=== PATIENT | male | born 1995 | race Caucasian/White ===

== ENCOUNTER 2024-03-27 20:45 | Emergency (ER) | payer OTHER ==
[2024-03-27 21:08] VITALS: BP 156/97; O2SAT 99
--- NOTE | 2024-03-27 21:13 | ED Physician Documentation ---
PD HPI ABD PAIN - Stated complaint Stated Complaint: RT SIDE PX - Chief complaint Chief Complaint: Abd Pain - Additional information Additional information: 29-year-old male with history of diverticulitis presents emergency department for right flank pain. Patient says that it was sudden onset right flank/abdominal pain that happened about 2 hours ago with aggressive nausea vomiting. Patient says that he has history of diverticulitis and this pain does feel somewhat similar but patient says that he is concerned that it could be due to a kidney stone as he has what he describes as hematuria. He feels the pain radiating and slowly moving down to his right abdominal/groin region. No recent illnesses no fevers or chills. PD PAST MEDICAL HISTORY - Present Medications Home Medications: Ambulatory Orders Medication Instructions Recorded Confirmed HYDROcod/ACETAM 5/325 [Homer 5/325] 1 tab PO Q6H PRN #8 tab 03/27/24 Ondansetron Odt [Zofran Odt] 4 mg TL Q6H PRN #10 tablet 03/27/24 Tamsulosin [Flomax] 0.4 mg PO DAILY #15 cap 03/27/24 - Allergies Allergies/Adverse Reactions: Allergies Allergy/AdvReac Type Severity Reaction Status Date / Time No Known Drug Allergies Allergy Verified 03/27/24 20:59 PD ED PE NORMAL - Vitals Vital signs reviewed: Yes - General General: Alert and oriented X 3, No acute distress, Other (obese) - HEENT HEENT: Atraumatic, PERRL - Cardiac Cardiac: RRR - Respiratory Respiratory: No respiratory distress - Abdomen Abdomen: Normal bowel sounds, Soft, Non distended, No organomegaly, Other (Right lower quadrant tenderness) - Back Back: Other (right CVA tenderness) - Psych Psych: Normal mood Results - Vitals Vitals: Vital Signs - 24 hr 03/27/24 03/27/24 20:54 21:14 Temperature 36.0 C L Heart Rate 66 72 Respiratory 16 Rate Blood Pressure 156/97 H O2 Saturation 99 Oxygen O2 Source Room air - Labs Labs: Laboratory Tests 03/27/24 03/27/24 21:10 21:10 WBC 10.3 RBC 5.38 Hgb 16.0 Hct 45.3 MCV 84.2 MCH 29.7 MCHC 35.3 RDW 12.2 Plt Count 314 MPV 9.5 Neut # (Auto) 6.8 H Lymph # (Auto) 2.6 [place] # (Auto) 0.7 Eos # (Auto) 0.2 Baso # (Auto) 0.0 Absolute Nucleated RBC 0.00 Nucleated RBC % 0.0 Sodium 137 Potassium 3.4 L Chloride 101 Carbon Dioxide 27 Anion Gap 9.0 BUN 15 Creatinine 0.9 Estimated GFR (MDRD) 100 Glucose 131 H Calcium 10.4 H Total Bilirubin 0.4 AST 21 ALT 40 Alkaline Phosphatase 75 Total Protein 7.6 Albumin 4.9 Globulin 2.7 Albumin/Globulin Ratio 1.8 Lipase 30 - Rads (name of study) CT KUB Relevant Findings:: Final report received, EMP independent interpretation of te st (Mild right hydronephrosis and proximal hydroureter secondary to 3 mm proximal ureter stone) PD Medical Decision Making - ED course ED course: 29-year-old male presents emergency department for right flank pain. Labs are complete for further evaluation and do not reveal any leukocytosis or anemia no electrolyte abnormalities. Calcium is very minimally elevated at 10.4 most likely due to dehydration as patient has had a couple episodes of nausea vomiting. CT KUB was complete which revealed a very small 3 mm right renal johnson culi. Patient was given Flomax in the emergency department as well as Toradol and Zofran and does report significant improvement in pain. He is also given a take-home pack of narcotics as well as Zofran to help with pain over the evening. I am prescribing a short course of short-acting opioid pain medication for this patient. 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 I have discussed that the opioids are for short term therapy only, and will not be refilled from the ED. Strict ER return precautions given patient told to follow-up with primary care provider outpatient for further evaluation and was told when to report back to the emergency department as needed. Flomax sent to patient's preferred pharmacy as well as some nausea and pain meds. Departure - Departure Disposition: 01 Home, Self Care Clinical Impression: Right renal stone Instructions: Kidney Stones, Kidney Stones Prevent Prescriptions: Tamsulosin [Flomax] 0.4 mg PO DAILY #15 cap HYDROcod/ACETAM 5/325 [Homer 5/325] 1 tab PO Q6H PRN #8 tab PRN Reason: Pain >8 Ondansetron Odt [Zofran Odt] 4 mg TL Q6H PRN #10 tablet PRN Reason: Nausea / Vomiting Comments: Thank you for trusting us with your care. We have found that you have a very small right renal calculi about 3 mm. You should eventually pass this on your own. Drink plenty of fluids avoid dehydrating things such as tea, coffee, energy drinks. 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 to help with symptoms. I am prescribing a short course of narcotic pain medication for you. These are potentially dangerous and addictive medications that should be used carefully. These medications may constipate you. Take an vgjm-vxv-itxztir stool softener (docusate) twice daily with plenty of water while taking these medications. If you go 24 hours without a bowel movement, take gcoi-faf-gvhvjjv miralax, per package instructions. Do not drink or drive while taking these medications. If you received narcotic or sedating medications while in the emergency department, do not drive for 24 hours. Store this medication in a safe, secure place and out of reach of children. It is a violation of federal law to give or sell this medication to another person or to use in a manner other than prescribed. The ED will not refill narcotic prescriptions, including prescriptions lost or stolen. To dispose of unwanted medications: 1. [facility] at [address] in [place] has a medication drop box. They accept prescription medications (in pill form) Tuesday through Tuesday 9:00 a.m. to 5:00 p.m. 2. The [facility] [employer] accepts prescription medications (in pill form only) for disposal year round. Call for more information. 3. Contact the [facility] for the next [facility] sponsored prescription drug collection event. , [phone], or [phone]; Note that many narcotic pain relievers also contain Tylenol/acetaminophen. Please ensure that your total dose of acetaminophen from all sources does not exceed 3 g (3000 mg) per day. Forms: PCP List Discharge Date/Time: 03/27/24 22:26
[2024-03-27 21:16] LABS: BASOPHILS % (AUTO) 0.4 %; EOSINOPHILS # (AUTO) 0.2 10^3/uL (0.0-0.7); EOSINOPHILS % (AUTO) 1.9 %; HCT - HEMATOCRIT 45.3 % (42.0-52.0); LYMPHOCYTES # (AUTO) 2.6 10^3/uL (1.5-3.5); MEAN CORPUSCULAR HEMOGLOBIN 29.7 pg (27.0-31.0); MEAN CORPUSCULAR HGB CONC 35.3 g/dL (32.0-36.0); MEAN CORPUSCULAR VOLUME 84.2 fL (80.0-94.0); MEAN PLATELET VOLUME 9.5 fL (7.4-11.4); MONOCYTES # (AUTO) 0.7 10^3/uL (0.0-1.0); MONOCYTES % (AUTO) 6.9 %; NEUTROPHILS # (AUTO) 6.8 10^3/uL (1.5-6.6); NEUTROPHILS % (AUTO) 65.6 %; PLT - PLATELET COUNT 314 10^3/uL (130-450); RED BLOOD COUNT 5.38 10^6/uL (4.70-6.10); RED CELL DISTRIBUTION WIDTH 12.2 % (12.0-15.0); WHITE BLOOD COUNT 10.3 x10^3/uL (4.8-10.8)
[2024-03-27 21:29] LABS: ALBUMIN 4.9 g/dL (3.2-5.5); ALBUMIN/GLOBULIN RATIO 1.8 (1.0-2.2); BILIRUBIN,TOTAL 0.4 mg/dL (0.2-1.0); CALCIUM 10.4 mg/dL (8.5-10.3); CREATININE 0.9 mg/dL (0.6-1.3); POTASSIUM 3.4 mmol/L (3.5-4.5); TOTAL PROTEIN 7.6 g/dL (6.4-8.9)
[2024-03-27] MEDS: SODIUM CHLORIDE 0.9% 1,000 ML IV ONE (21:37)
[2024-03-27] MEDS: KETOROLAC 30 MG/ML VIAL IVP STA (21:37)
[2024-03-27] MEDS: ONDANSETRON 4 MG/2 ML VIAL IVP STA (21:37)
--- NOTE | 2024-03-27 21:55 | CT Report ---
PROCEDURE: KUB INDICATIONS: Right flank pain TECHNIQUE: A CT scan of the abdomen and pelvis was performed without the use of intravenous contrast. Images we re recorded and evaluated at appropriate window settings. Reformats: coronal and sagittal. For radiat ion dose reduction, the following was used: automated exposure control, adjustment of mA and/or kV ac cording to patient size. COMPARISON: None. FINDINGS: Image quality: Diagnostic. Lower chest: Unremarkable. Liver: No contour-deforming mass. Gallbladder: Unremarkable Biliary tree: No intrahepatic or extrahepatic dilation, accounting for age. Spleen: No splenomegaly. Pancreas: No pancreatic ductal dilation. Adrenals: No adrenal nodule. Kidneys and ureters: Mild right hydronephrosis and proximal ureter. 3 mm calcification is present in the proximal right ureter. Stomach, bowel and peritoneum: No gastric or small bowel dilation. No abnormal wall thickening. No pa thologic free fluid. Appendix is normal. Lymph nodes: No central or retroperitoneal adenopathy. Vessels: No infrarenal aortic aneurysm. Reproductive organs: Unremarkable. Bladder: Bladder wall thickness is normal, accounting for underdistention. No calcified bladder stone s. Pelvic lymph nodes: No adenopathy by size criteria. Bones: No aggressive osseous abnormality. Other: No significant ventral or inguinal hernia. IMPRESSION: Mild right hydronephrosis and proximal hydroureter secondary to 3 mm proximal ureteral stone. Reviewed by: Candice Ching MD on 03/27/2024 9:53 PM PDT Approved by: Candice Ching MD on 03/27/2024 9:53 PM PDT Station ID: [id number]
[2024-03-27] MEDS: TAMSULOSIN 0.4 MG CAPSULE PO STA (22:05)
[2024-03-27] MEDS: HYDROcod/ACET 5/325 Prepack 4 PO STA (22:21)
[2024-03-27] MEDS: ONDANSETRON ODT 4 MG Prepack 2 TL PRN (22:21)
== END 2024-03-27 22:26 | disposition home or self-care (01) ==
LOC: EDBD → ED 20:45
DX: N13.2 Hydronephrosis with renal and ureteral calculous obstruction (principal)
CPT/HCPCS: 36415; 74176; 80053; 83690; 85025; 96374; 99284; A9270